=== PATIENT | female | born 1995 | race Caucasian/White ===

== ENCOUNTER 2023-07-23 07:36 | Inpatient (IN) ==
[2023-07-23] MEDS ORDERED: LIDOCAINE 1% LOCAL 20 ML VIAL INFIL PRN (08:18)
[2023-07-23] MEDS ORDERED: OXYTOCIN 30 UNITS/500 ML BAG IV PRN ×3 (08:18→19:16)
--- NOTE | 2023-07-23 08:27 | History & Physical Report ---
Date of Service July 23, 2023 Assessment & Plan (1) Gestational diabetes: (2) Encounter for induction of labor: Plan Will admit patient for induction of labor. Patient comfortable. VSS. FHT category 1. Moderate variability. Pit started. Epidural prn. Admission and Anticipated Discharge Date Admission Date: July 23, 2023 History of Present Illness Chief Complaint: IOL due to GDM with insulin Primary Care Provider: Jon Davis MD Flori is a 28 y/o female currently at IUP 39 3/7 WGA with an MARCO 07/26/2023 as determined by certain LMP who is here for IOL due to GDM with insulin. (+) contractions since yesterday (irregular) (+) movement (-) fluid loss (-) bloody show External FHT and external uterine monitors used * Category 1 tracing * Moderate FHT variability. Had regular appointments since her first trimester trimester. OB Labs: Blood Type A Positive 12/25/22 Antibody Screen NEGATIVE 12/25/22 Hemoglobin 12.0 g/dl (12.0-16.0) 05/16/23 Hematocrit 36.4 % (37.0-47.0) L 05/16/23 Mean Corpuscular Volume 87.0 fL (80.0-100.0) 12/25/22 Platelet Count 264 K/uL (130-400) 12/25/22 Rubella IgG Antibody Immune (Immune) 12/25/22 Rapid Plasma Reagin Nonreactive (Nonreactive) 12/25/22 Hepatitis B Surface Antigen. NON-REACTIVE (NON-REACTIVE) 12/25/22 Hepatitis C Antibody (EIA) NON-REACTIVE (NON-REACTIVE) 12/25/22 HIV (1&2) Ag and Ab Confirmation NON-REACTIVE (NON-REACTIVE) 12/25/22 Glucose 1 Hour 50 gm Load 206 mg/dl (70-130) H 02/15/23 OB Optional Labs: Chlamydia trachomatis RNA Not Detected (NotDetected) 12/25/22 Neisseria gonorrhoeae RNA Not Detected (NotDetected) 12/25/22 Thyroid Stimulating Hormone (TSH) 0.595 uIu/ml (0.300-4.500) 05/16/23 Labs Reviewed: cfdna-low risk gbs neg Allergies Allergy/AdvReac Type Severity Reaction Status Date / Time amoxicillin Allergy Unknown Rash Verified 07/22/23 13:36 seasonal allergies Allergy Unknown Congested Uncoded 07/22/23 13:36 Home Medications Medication Instructions Recorded Confirmed Type albuterol sulfate 90 mcg/actuation 1 inh inhalation ONCE PRN Wheezing 04/05/23 07/23/23 History aerosol inhaler hydroxyzine HCl 10 mg tablet 10 mg PO DAILY PRN Anxiety 04/05/23 07/23/23 History pediatric aphqybng-wezy-jui 1 tab PO DAILY 04/05/23 07/23/23 History (Flintstones Complete (iron) chewable tablet) blood-glucose sensor (Dexcom G7 #3 ea 04/12/23 07/22/23 Rx Sensor device) pen needle, diabetic 32 gauge x #50 ea 04/12/23 07/22/23 Rx 5/32" (BD Aarti 2nd Gen Pen Needle) levothyroxine 88 mcg tablet 88 mcg PO DAILY #30 tabs 07/10/23 07/23/23 Rx insulin NPH isoph U-100 human 100 25 unit subcut QPM 07/16/23 07/23/23 History unit/mL (3 mL) subcutaneous pen (Novolin N FlexPen) albuterol sulfate 90 mcg/actuation inhalation 07/23/23 History aerosol inhaler Patient History Medical History (Updated 07/23/23 @ 08:59 by Roxana Hill MD) Anxiety Asthma Elevated blood sugar level Gestational diabetes insulin required Hypothyroidism Surgical History S/P tonsillectomy S/P wisdom tooth extraction Family History Father Diabetes High cholesterol Family history of thyroid problem Denies family history of Ovarian cancer Breast cancer Colorectal cancer Social History Smoking Status: Never smoker Second Hand Exposure: No; Do You Dip or Chew Tobacco: No; Tobacco Cessation Education Requested by Patient: No Hx Alcohol Use: No Hx Substance Use: No Preferred Language: [place] Communication Ability: Effective Heating And Cooling Systems Engineer Required: No Beliefs That Will Affect Care: None marital status: marital status details: Shun Wilson (27) [phone] Current Living Situation: Family Current Living Situation Comment: Lives with and 2 cats current occupational status: employed current occupation: high school home economics teacher Other Information That Helps Us Care for You: No Feels Safe at Home: Yes Safety Concerns: Feels Safe At This Time Assistive Devices: None OB History LMP: 10/19/22 : 1 Full term: 0 Premature: 0 Total Number of Induced Abortions: 0 Total Number of Spontaneous Abortions: 0 Ectopics: 0 Multiple births: 0 Number of Living Children: 0 MEDICAL STAFF PHYSICIAN History Menarche was at 13 y/o LMP: 10/19/2022 * Regular: Every 29 days * Duration: 5 days * Flow: Normal * Dysmenorrhea: N * IMB: N Contraception use: No History of STDs: N Last Pap Smear: 09/06/2021 (negative) Review of Systems no fever, no chills and no sweats Denies changes in vision. Denies shortness of breath or respiratory difficulty. no chest pain and no palpitations no dysuria no headache(s) Physical Exam Physical Exam: General: Alert, oriented x3. Afebrile. No acute distress. Eyes: Pupils equal and reactive to light bilaterally. Extraocular movement intact bilaterally. Cardiac: Regular rate and rhythm, no murmurs/rubs/gallops. Respiratory: Clear to auscultation bilaterally a/p, no wheezes/rales/rhonchi. No increased work of breathing. Symmetrical chest rise. No respiratory distress. Abdomen: Gravid; FHT baseline 130-135 bpm; Position: Cephalic Pelvic: Dilation 2cm; Effacement 75; Station -[address] Morgan Lower Extremities: No lower extremity edema or swelling. No deep calf pain. Nita's negative bilaterally Results & Data Vital Signs (Past 12 Hours) Vital Signs Temp Pulse Resp BP 07/23/23 08:15 36.7 C 113 H 16 115/80 07/23/23 07:44 113 H 115/80 Supervising Physician Co-Signing Physician Notes Patient evaluated and agree with the above findings and plan. Resident Activity Tracking Resident Involvement: Resident Care Provided Care Provided: OB Delivery
[2023-07-23 08:47] LABS: Hematocrit (blood only) 37.7 % (37.0-47.0); Hemoglobin 12.5 g/dl (12.0-16.0); Mean Corpuscular Hemoglobin 28.7 pg (25.0-34.0); Mean Corpuscular Hgb Conc 33.2 g/dL (32.0-36.0); Mean Corpuscular Volume 86.7 fL (80.0-100.0); Mean Platelet Volume 12.1 fL (9.4-12.4); Platelet Count 154 K/uL (130-400); RDW Standard Deviation 47.3 fL (36.4-46.3); Red Blood Count 4.35 M/uL (4.20-5.40); White Blood Count 10.71 K/ul (4.8-10.8)
[2023-07-23] MEDS: LACTATED RINGER'S 1,000 ML IV PRN ×2 (08:48→17:27)
[2023-07-23] MEDS ORDERED: BUPIVACAINE 0.25% PF 30 ML VIAL ONE (13:31)
[2023-07-23] MEDS ORDERED: SODIUM CHLORIDE 0.9% PF INJ 10 ML VIAL ONE (13:31)
[2023-07-23] MEDS ORDERED: fentANYL 2 MCG/ML BUPIVacaine 0.125%-NSS 100ML BAG ONE (13:31)
[2023-07-23] MEDS ORDERED: ePHEDrine sulfate 50 MG/ML AMP ONE (13:31)
[2023-07-23] MEDS ORDERED: fentaNYL citrate PF 100 MCG/2 ML VIAL ONE (13:31)
[2023-07-23] MEDS ORDERED: LIDOCAINE 2%/EPINEPHRINE 1:200,000 20 ML PF ONE (13:32)
--- NOTE | 2023-07-23 14:29 | Anesthesiology Consultation ---
Date of Service July 23, 2023 Assessment & Plan (1) Encounter for pre-operative examination: Chart Review Chart Review: Acceptable Risk for Labor Epidural History Height/Weight Height: 5 ft Weight: 82.1 kg Allergies Allergy/AdvReac Type Severity Reaction Status Date / Time amoxicillin Allergy Unknown Rash Verified 07/22/23 13:36 seasonal allergies Allergy Unknown Congested Uncoded 07/22/23 13:36 Medications Home Medications Medication Instructions Recorded Confirmed Last Taken albuterol sulfate 90 mcg/actuation 1 inh inhalation ONCE PRN Wheezing 04/05/23 07/23/23 06/23/23 aerosol inhaler hydroxyzine HCl 10 mg tablet 10 mg PO DAILY PRN Anxiety 04/05/23 07/23/23 Unknown pediatric [id number]-bsvg-may 1 tab PO DAILY 04/05/23 07/23/23 07/22/23 12:30 (Flintstones Complete (iron) chewable tablet) blood-glucose sensor (Dexcom G7 #3 ea 04/12/23 07/22/23 Unknown Sensor device) pen needle, diabetic 32 gauge x #50 ea 04/12/23 07/22/23 Unknown 5/32" (BD Aarti 2nd Gen Pen Needle) levothyroxine 88 mcg tablet 88 mcg PO DAILY #30 tabs 07/10/23 07/23/23 07/23/23 06:00 insulin NPH isoph U-100 human 100 25 unit subcut QPM 07/16/23 07/23/23 07/22/23 20:30 unit/mL (3 mL) subcutaneous pen (Novolin N FlexPen) albuterol sulfate 90 mcg/actuation inhalation 07/23/23 Unknown aerosol inhaler Active Medications Generic Name Dose Route Start Last Admin Trade Name Freq PRN Reason Stop Dose Admin Lactated Ringer's 1,000 mls @ 125 mls/hr 07/23/23 08:18 07/23/23 08:48 Lr IV 07/25/23 08:17 125 mls/hr .Q8H PRN Administration L&D Protocol Protocol Oxytocin 30 units in 500 mls @ 8 mls/hr 07/23/23 08:31 07/23/23 10:30 Pitocin IV 07/25/23 08:30 0.48 units/hr .Q24H PRN 8 mls/hr Labor Induction/Augmentation Titration Protocol 0.48 UNITS/HR Past Medical History Medical History Anxiety Asthma Elevated blood sugar level Gestational diabetes insulin required Hypothyroidism Past Family History Family History Father Diabetes High cholesterol Family history of thyroid problem Denies family history of Ovarian cancer Breast cancer Colorectal cancer Past Surgical History Surgical History S/P tonsillectomy S/P wisdom tooth extraction Social History Smoking Status: Never smoker Do You Dip or Chew Tobacco: No Hx Alcohol Use: No Hx Substance Use: No substance use type: does not use Physical Exam Vital Signs Last Vital Signs Temp 36.7 C 07/23/23 08:15 Pulse 96 H 07/23/23 14:23 Resp 16 07/23/23 08:15 BP 117/70 07/23/23 13:41 Pulse Ox 100 07/23/23 14:23 Testing Laboratory Results 07/23/23 08:28 Blood Type A Positive 07/23/23 08:28 Antibody Screen NEGATIVE 07/23/23 08:28 07/23/23 07/23/23 07/23/23 14:08 13:07 11:59 POC Glucose 81 68 L* 94 07/23/23 07/23/23 07/23/23 11:29 10:32 09:28 POC Glucose 69 L* 70 74 07/23/23 08:10 POC Glucose 95
[2023-07-23] MEDS ORDERED: SODIUM CHLORIDE 0.9% PF INJ 10 ML VIAL EPI PRN (15:16)
[2023-07-23] MEDS ORDERED: ePHEDrine sulfate 50 MG/ML AMP IV PRN (15:16)
[2023-07-23] MEDS ORDERED: fentaNYL citrate PF 100 MCG/2 ML VIAL EPI STA (15:16)
[2023-07-23] MEDS ORDERED: NALOXONE HCL 0.4 MG/1 ML VIAL/CARP IV PRN (15:16)
[2023-07-23] MEDS ORDERED: BUPIVACAINE 0.25% PF 30 ML VIAL EPI STA (15:16)
[2023-07-23] MEDS ORDERED: NALOXONE HCL 1 MG in SODIUM CHLORIDE 0.9% 1,000 ML IV PRN (15:16)
[2023-07-23] MEDS ORDERED: ONDANSETRON INJ 2 MG/ML 2 ML VIAL IV PRN (15:16)
[2023-07-23] MEDS ORDERED: fentANYL 2 MCG/ML BUPIVacaine 0.125%-NSS 100ML BAG EPI PRN (15:16)
[2023-07-23] MEDS ORDERED: LIDOCAINE 2% MPF LOCAL 5 ML VIAL EPI PRN (15:16)
[2023-07-23] MEDS ORDERED: SODIUM CHLORIDE 0.9% PF INJ 10 ML VIAL EPI STA (15:16)
[2023-07-23] MEDS ORDERED: BUPIVACAINE 0.25% PF 30 ML VIAL EPI PRN (15:16)
[2023-07-23] MEDS ORDERED: LIDOCAINE 2%/EPINEPHRINE 1:200,000 20 ML PF EPI STA (15:16)
[2023-07-23] MEDS ORDERED: fentaNYL citrate PF 100 MCG/2 ML VIAL EPI PRN (15:16)
[2023-07-23] MEDS ORDERED: ROPIVACAINE 0.5% PF 5 MG/ML 20 ML VIAL EPI PRN (15:16)
--- NOTE | 2023-07-23 19:15 | Delivery Summary ---
Vaginal Delivery Summary Date of Service July 23, 2023 Vaginal Delivery Summary and 2nd Degree LAC Patient progressed to 10 cm dilated 100% effaced pressure over intact perineum with epidural anesthesia and delivered a viable male with weight and Apgars pending. Had the delivered in ALEJANDRO position rest due to right transverse. No nuchal cord was noted. Body and shoulders quickly followed. was noted to be vigorous soon after delivery and a 1 minute delayed cord clamping was initiated. Cord was then doubly clamped and cut. remained in maternal abdomen. Cord blood was obtained. Attention was turned to delivery of placenta which delivered intact three-vessel cord gentle cord traction. On inspection of the perineum vagina cervix there is noted to be a second-degree perineal laceration which was repaired with 3-0 Vicryl in traditional crown stitch. Needle sponge and instrument counts are correct at completion of the case. Both mother and stable in the immediate postdeliveryperiod. [facility] Vaginal Delivery Charge Delivery Type Details: and 2nd Degree LAC
[2023-07-23] MEDS ORDERED: HYDROCORTISONE ACETATE 25 MG SUPP PR PRN (19:16)
[2023-07-23] MEDS ORDERED: BENZOCAINE 20% SPRY 85 APPLN/85 GM CAN EXT PRN (19:16)
[2023-07-23] MEDS ORDERED: bisacodyL 10 MG SUPP PR PRN (19:16)
[2023-07-23] MEDS ORDERED: DIPHTHERIA/TETANUS/PERTUSSIS Vaccine (Tdap, Age 7+yrs) 0.5mL SYR/VL IM ONE (19:16)
[2023-07-23] MEDS ORDERED: miSOPROStoL 200 MCG TAB PR ONE (19:16)
--- NOTE | 2023-07-23 19:45 | Anesthesia Procedure Note ---
Date of Service July 23, 2023 Anesthesia Post Epidural Note Vital Signs Vital Signs: Temp Pulse Resp BP Pulse Ox 36.7 C 85 18 110/77 98 07/23/23 08:15 07/23/23 19:35 07/23/23 19:20 07/23/23 19:35 07/23/23 18:48 Notes Mental Status: alert / awake / arousable and participated in evaluation Nausea / Vomiting: adequately controlled Pain: adequately controlled Airway Patency, RR, SpO2: stable & adequate BP & HR: stable & adequate Hydration State: stable & adequate Neuraxial Anesthesia: was administered and sensory block is resolving Anesthetic Complications: no major complications apparent Epidural: Removed without complications and With tip intact
[2023-07-23] MEDS: DOCUSATE SODIUM 100 MG CAP PO SCH (21:45)
[2023-07-23] MEDS: ACETAMINOPHEN 325 MG TAB PO PRN (22:13)
[2023-07-23] MEDS ORDERED: miSOPROStoL 200 MCG TAB ONE (22:42)
[2023-07-23] MEDS: IBUPROFEN 600 MG TAB PO PRN (23:05)
[2023-07-24] MEDS: IBUPROFEN 600 MG TAB PO PRN ×3 (04:31→15:31)
[2023-07-24] MEDS: ACETAMINOPHEN 325 MG TAB PO PRN (05:25)
[2023-07-24] MEDS: LEVOTHYROXINE SODIUM 88 MCG TABLET PO SCH (06:17)
--- NOTE | 2023-07-24 07:45 | Obstetrical Progress Note ---
Date of Service <Roxana Hill MD - Last Filed: 07/24/23 08:11> July 24, 2023 Assessment & Plan <Roxana Hill MD - Last Filed: 07/24/23 08:11> (1) Encounter for assessment: Plan Patient with the above mentioned history and findings was evaluated at bedside and found awake, alert, oriented in all spheres, afebrile, and in no acute distress. Vital signs showed no fever and blood pressures remained stable and has remained without symptoms of severity (e.g. vision changes, headaches, oliguria, etc.). Her blood type is A positive and yesterday's hemoglobin was adequate at 12.5 g/dL. She is GBS negative and rubella immune. Overall, patient is doing well clinically and meeting the desired milestones. Will continue care. Should she remain clinically and hemodynamically stable, will consider discharge tomorrow with follow up with her OB in 6 weeks for her evaluation. All questions were answered. <Albino Morgan MD - Last Filed: 07/24/23 08:12> (1) Encounter for assessment: Subjective <Roxana Hill MD - Last Filed: 07/24/23 08:11> Flori is a 28 y/o female who is now PPD # 1 following at 39 3/7 weeks after IOL due to GDM managed with Insulin. Reports feeling well overall this morning. Refers mild abdominal cramping & 4/10 pain well managed on analgesics. Voiding spontaneously without difficulty. Has passed flatus but has not had a bowel movement yet. Tolerating meals overnight and able to ambulate some. Some persistent lochia with some improvement this morning. and supplementing with bottle feeds. Constitutional: no fever, no chills or no sweats Denies shortness of breath or difficulty breathing Cardiovascular: no chest pain or no palpitations Breast: no breast pain Genitourinary (female): no dysuria Neurologic: no headache(s) Denies changes in vision Physical Exam <Roxana Hill MD - Last Filed: 07/24/23 08:11> General: Alert. Oriented to person, time, and place. Afebrile. No acute distress. Eyes: pupils equal and reactive to light bilaterally, extraocular movements intact. Cardiac: Regular rate and rhythm, no murmurs/rubs/gallops. Respiratory: Clear to auscultation bilaterally a/p, no wheezes/rales/rhonchi. No increased work of breathing. Symmetrical chest rise. No respiratory distress. Abdomen: Soft, nontender, nondistended. Bowel sounds present. Uterus: Uterine fundus firm, mildly tender, and palpable below umbilicus. Lower Extremities: Slight bilateral lower extremity swelling without pitting. No deep calf pain. Nita's negative bilaterally. Psych: Euthymic affect. Mood and affect congruence. Regular speech rate and content. Results & Data <Roxana Hill MD - Last Filed: 07/24/23 08:11> Vital Signs (Past 12 Hours) Vital Signs Temp Pulse Pulse Resp BP BP Pulse Ox 07/24/23 04:32 37.1 C 91 H 18 104/64 100 07/23/23 23:15 37.3 C 84 18 98/67 L 97 07/23/23 21:30 37.6 C H 88 18 107/54 L 07/23/23 21:05 37.6 C H 20 07/23/23 20:35 18 07/23/23 19:50 18 07/23/23 20:05 20 07/23/23 21:17 88 107/54 L 07/23/23 20:50 92 H 113/55 L 07/23/23 20:35 88 124/69 07/23/23 20:20 83 109/58 L 07/23/23 20:05 93 H 116/57 L 07/23/23 19:50 80 119/60 O2 Del Method 07/24/23 04:32 Room Air 07/23/23 23:15 Room Air 07/23/23 21:30 Room Air 07/23/23 21:05 07/23/23 20:35 07/23/23 19:50 07/23/23 20:05 07/23/23 21:17 07/23/23 20:50 07/23/23 20:35 07/23/23 20:20 07/23/23 20:05 07/23/23 19:50 <Albino Morgan MD - Last Filed: 07/24/23 08:12> Co-Signing Physician Notes Patient seen and evaluated with resident and agree with the above findings and plan. Routine care. Resident Activity Tracking <Roxana Hill MD - Last Filed: 07/24/23 08:11> Resident Involvement: Resident Care Provided Care Provided: OB Delivery
[2023-07-24] MEDS: PRENATAL VITAMIN 1 TAB PO SCH (07:57)
[2023-07-24] MEDS: FERROUS SULFATE 325 MG TAB PO SCH (07:57)
[2023-07-24] MEDS: DOCUSATE SODIUM 100 MG CAP PO SCH ×2 (07:57→19:53)
[2023-07-24] MEDS ORDERED: bisacodyL 5 MG TABEC PO SCH (20:00)
[2023-07-25] MEDS: IBUPROFEN 600 MG TAB PO PRN (04:05)
[2023-07-25] MEDS: LEVOTHYROXINE SODIUM 88 MCG TABLET PO SCH (06:47)
--- NOTE | 2023-07-25 07:10 | Obstetrical Progress Note ---
Date of Service <Roxana Hill MD - Last Filed: 07/25/23 07:10> July 25, 2023 Assessment & Plan <Roxana Hill MD - Last Filed: 07/25/23 07:10> (1) Encounter for assessment: Plan Patient with the above mentioned history and findings was evaluated at bedside and found awake, alert, oriented in all spheres, afebrile, and in no acute distress. Vital signs showed no fever and blood pressures remained stable and has remained without symptoms of severity (e.g. vision changes, headaches, oliguria, etc.). Her blood type is A positive and most recent hemoglobin was adequate at 12.5 g/dL. She is GBS negative and rubella immune. Overall, patient is doing well clinically and meeting the desired milestones. Since she is clinically and hemodynamically stable, will discharge today with follow up with her OB in 6 weeks for her evaluation. Discharge instructions discussed. All questions were answered. <Mary Lou Farley MD, FACOG - Last Filed: 07/25/23 08:04> (1) Encounter for assessment: Subjective <Roxana Hill MD - Last Filed: 07/25/23 07:10> Flori is a 28 y/o female who is now PPD # 2 following at 39 3/7 weeks after IOL due to GDM managed with Insulin. Reports feeling well overall this morning. Refers mild abdominal cramping & 3/10 pain well managed on analgesics. Voiding spontaneously without difficulty. Has passed flatus but has not had a bowel movement yet. Tolerating meals overnight and able to ambulate some. Some persistent lochia with some improvement this morning. and supplementing with formula feeds. Constitutional: no fever, no chills or no sweats Denies shortness of breath or difficulty breathing Cardiovascular: no chest pain or no palpitations Breast: no breast pain Genitourinary (female): no dysuria Neurologic: no headache(s) Denies changes in vision Physical Exam <Roxana Hill MD - Last Filed: 07/25/23 07:10> General: Alert. Oriented to person, time, and place. Afebrile. No acute distress. Eyes: pupils equal and reactive to light bilaterally, extraocular movements intact. Cardiac: Regular rate and rhythm, no murmurs/rubs/gallops. Respiratory: Clear to auscultation bilaterally a/p, no wheezes/rales/rhonchi. No increased work of breathing. Symmetrical chest rise. No respiratory distress. Abdomen: Soft, nontender, nondistended. Bowel sounds present. Uterus: Uterine fundus firm, mildly tender, and palpable below umbilicus. Lower Extremities: Slight bilateral lower extremity swelling without pitting that is relatively unchanged compared to yesterday. No deep calf pain. Nita's negative bilaterally. Psych: Euthymic affect. Mood and affect congruence. Regular speech rate and content. Results & Data <Roxana Hill MD - Last Filed: 07/25/23 07:10> Vital Signs (Past 12 Hours) Vital Signs Temp Pulse Resp BP Pulse Ox O2 Del Method 07/25/23 00:45 36.9 C 83 18 107/73 07/24/23 19:55 36.8 C 92 H 20 103/72 97 Room Air Supervising Physician <Mary Lou Farley MD, FACOG - Last Filed: 07/25/23 08:04> Co-Signing Physician Notes Resident Physician Supervision Note: I interviewed and examined the patient. Discussed with Dr. Hill and agree with findings and plan as documented in the note. Any exceptions or clarifications are listed here: Doing well. Plan d/c. Instructions given. Documented By: Mary Lou Farley MD, FACOG Resident Activity Tracking <Roxana Hill MD - Last Filed: 07/25/23 07:10> Resident Involvement: Resident Care Provided Care Provided: OB Delivery
[2023-07-25] MEDS: PRENATAL VITAMIN 1 TAB PO SCH (08:46)
[2023-07-25] MEDS: DOCUSATE SODIUM 100 MG CAP PO SCH (08:46)
[2023-07-25] MEDS: FERROUS SULFATE 325 MG TAB PO SCH (08:46)
== END 2023-07-25 13:15 | disposition home or self-care (01) | DRG 807 ==
LOC: 4S1 07:36 → 4E2 21:48